=== PATIENT | female | born 2000 | race Two or more races ===

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

== ENCOUNTER 2019-08-17 15:54 | Emergency (ER) | payer OTHER ==
[~2019-08-17] VITALS: Ht 160 cm; Wt 56.7 kg
[~2019-08-17 15:54] MED LIST changes: -ALBU8.5H2 IH; +ALBU8.5H8 IH
--- NOTE | 2019-08-17 16:37 | NUR ---
PT BIB MOTHER C/O CONGESTION AND THROAT PAIN X 4 DAYS. AFEBRILE. PT AAOX4, VSS, BREATHING EVEN AND UNLABORED ON ROOM AIR W/ AND NOTED. PT CONNECTED TO THE MONITOR AND POX
[2019-08-17 16:54] VITALS: BP 121/73
--- NOTE | 2019-08-17 16:55 | NUR ---
Patient discharged to home in stable condition. Written and verbal after care instructions given. Patient verbalizes understanding of instruction.
== END 2019-08-17 16:55 | disposition home or self-care (01) ==
LOC: ER 15:59
DX: J20.9 Acute bronchitis, unspecified (principal); J45.909 Unspecified asthma, uncomplicated; Z90.89 Acquired absence of other organs; Z79.899 Other long term (current) drug therapy

== ENCOUNTER 2022-04-27 08:59 | Emergency (ER) | payer OTHER ==
[~2022-04-27] VITALS: Ht 160 cm; Wt 56.2 kg
[2022-04-27 09:12] VITALS: BP 132/83
--- NOTE | 2022-04-27 09:15 | NUR ---
To ER bed 7, "Feel like I have burning in my chest started yesterday +cough/phlegm", aaox3, breathing even and non labored, awaiting md orders
--- NOTE | 2022-04-27 09:38 | NUR ---
URINE COLLECTED AND SENT TO LAB
[2022-04-27] MEDS ORDERED: IBUP-1957 PO ×3 (11:32→11:55)
[2022-04-27] MEDS ORDERED: ALBU8.5H8 INH (11:55)
--- NOTE | 2022-04-27 12:17 | NUR ---
Patient discharged to home in stable condition. Written and verbal after care instructions given. Patient verbalizes understanding of instruction.
== END 2022-04-27 12:17 | disposition home or self-care (01) ==
LOC: ER 09:04
DX: B34.9 Viral infection, unspecified (principal); J45.909 Unspecified asthma, uncomplicated; Z91.011 Allergy to milk products; Z91.013 Allergy to seafood; Z91.012 Allergy to eggs; Z88.8 Allergy status to other drugs, medicaments and biological substances; Z79.899 Other long term (current) drug therapy
CPT/HCPCS: 71045-TC; 84703-TC

== ENCOUNTER 2022-11-18 09:45 | Emergency (ER) | payer OTHER ==
[~2022-11-18] VITALS: Ht 160 cm; Wt 54.4 kg
[~2022-11-18 09:45] MED LIST changes: +ALBU8.5H8 INH; +IBUP-1957 PO
[2022-11-18 12:13] VITALS: BP 123/73
== END 2022-11-18 12:13 | disposition home or self-care (01) ==
LOC: ER 09:52
DX: S93.602A Unspecified sprain of left foot, initial encounter (principal); J45.909 Unspecified asthma, uncomplicated; Z90.89 Acquired absence of other organs; Z91.011 Allergy to milk products; Z91.013 Allergy to seafood; Z91.018 Allergy to other foods; Z79.899 Other long term (current) drug therapy; X50.1XXA Overexertion from prolonged static or awkward postures, initial encounter; Y93.89 Activity, other specified; Y92.89 Other specified places as the place of occurrence of the external cause; Y99.8 Other external cause status
CPT/HCPCS: 73630-TC

== ENCOUNTER 2023-01-13 12:26 | Emergency (ER) | payer OTHER ==
[~2023-01-13] VITALS: Ht 160 cm; Wt 52.2 kg
--- NOTE | 2023-01-13 12:40 | NUR ---
c/o pelvic and bilateral flank pain x 4 days. denies dysuria and hematuria.
--- NOTE | 2023-01-13 13:19 | NUR ---
URINE COLLECTED AND SENT TO LAB
[2023-01-13 13:28] LABS: BASOPHILS % (AUTO) 0.4 % (0.0-2.0); EOSINOPHILS % (AUTO) 1.7 % (0.0-6.0); HEMATOCRIT 39 % (33-45); HEMOGLOBIN 12.7 g/dL (11.5-14.8); LYMPHOCYTES # (AUTO) 2.4 K/uL (0.8-4.8); LYMPHOCYTES % (AUTO) 29.3 % (20.0-44.0); MEAN CORPUSCULAR HGB CONC 33 g/dl (31.0-36.0); MEAN CORPUSCULAR VOLUME 90 fL (82-100); MONOCYTES # (AUTO) 0.5 K/uL (0.1-1.30); MONOCYTES % (AUTO) 6.4 % (2.0-12.0); NEUTROPHILS # (AUTO) 5.1 K/uL (1.8-8.9); NEUTROPHILS % (AUTO) 62.2 % (43.0-81.0); PLATELET COUNT (AUTO) 300 K/uL (150-450); RED BLOOD CELL COUNT(AUTO) 4.32 MIL/uL (4.0-5.2); WHITE BLOOD COUNT (AUTO) 8.1 K/uL (4.3-11.0)
[2023-01-13 13:53] LABS: CREATININE 0.5 mg/dL (0.6-1.3); POTASSIUM 4.1 mmol/L (3.5-5.1)
[2023-01-13 13:57] LABS: BILIRUBIN,URINE NEGATIVE (NEGATIVE); COLOR,URINE YELLOW (YELLOW); LEUKOCYTE ESTERASE ,URINE NEGATIVE (NEGATIVE); NITRITE, URINE NEGATIVE (NEGATIVE); PROTEIN,URINE NEGATIVE (NEGATIVE); UGLUCOSE NEGATIVE (NEGATIVE); UROBILINOGEN,URINE 0.2 EU/dL (0.2)
[2023-01-13 13:59] LABS: BILIRUBIN,DIRECT 0.1 mg/dL (0.0-0.2); BILIRUBIN,TOTAL 0.5 mg/dL (0.2-1.0); TOTAL PROTEIN, SERUM 7.2 g/dL (6.4-8.2)
--- NOTE | 2023-01-13 14:15 | NUR ---
US TECH AT BED SIDE
[2023-01-13] MEDS ORDERED: NAPR-1009 PO (15:18)
[2023-01-13] MEDS ORDERED: KETOROLAC TROMETHAMINE INJ 30 MG/ML VIAL ONE (16:28)
[2023-01-13] MEDS ORDERED: KETOROLAC TROMETHAMINE INJ 30 MG/ML VIAL IM ONE (16:30)
--- NOTE | 2023-01-13 17:09 | NUR ---
Patient discharged to home in stable condition. Written and verbal after care instructions given. Patient verbalizes understanding of instruction.
[2023-01-13 17:11] VITALS: BP 112/61
== END 2023-01-13 17:12 | disposition home or self-care (01) ==
LOC: ER 12:30
DX: M54.50 Low back pain, unspecified (principal); R10.30 Lower abdominal pain, unspecified; J45.909 Unspecified asthma, uncomplicated; Z98.890 Other specified postprocedural states; Z79.899 Other long term (current) drug therapy
CPT/HCPCS: 99285; 74176; 76856; 96372; 85025; 80048; 87086; 83690; 80076; 84703; 81003; 36415; 85730; J1885

== ENCOUNTER 2024-02-05 09:20 | Emergency (ER) | payer OTHER ==
[~2024-02-05] VITALS: Ht 160 cm; Wt 54.4 kg
[~2024-02-05 09:20] MED LIST changes: +NAPR-1009 PO
[2024-02-05 09:37] VITALS: BP 131/69; TEMP 98.6; O2SAT 100
[2024-02-05] MEDS ORDERED: TETRAcaine 5 ML BOTTLE ONE (09:54)
[2024-02-05] MEDS ORDERED: CIPR5DRO LEFTEYE (10:08)
[2024-02-05] MEDS ORDERED: FLUORESCEIN SODIUM OPHTH 1 EA STRIP ONE (10:17)
== END 2024-02-05 10:30 | disposition home or self-care (01) ==
LOC: ER 09:20
DX: H10.9 Unspecified conjunctivitis (principal); J45.909 Unspecified asthma, uncomplicated; Z90.89 Acquired absence of other organs; Z91.011 Allergy to milk products; Z91.018 Allergy to other foods; Z91.013 Allergy to seafood; Z91.040 Latex allergy status; Z91.012 Allergy to eggs

== ENCOUNTER 2024-02-06 14:03 | Emergency (ER) | payer OTHER ==
[~2024-02-06] VITALS: Ht 160 cm; Wt 54.4 kg
[~2024-02-06 14:03] MED LIST changes: +CIPR5DRO LEFTEYE
[2024-02-06 14:12] VITALS: BP 127/71; TEMP 98.3; O2SAT 99
== END 2024-02-06 15:47 | disposition left against medical advice (07) ==
LOC: ER 14:06
DX: H57.10 Ocular pain, unspecified eye (principal); Z53.21 Procedure and treatment not carried out due to patient leaving prior to being seen by health care provider

== ENCOUNTER 2025-03-08 14:48 | Emergency (ER) | payer OTHER ==
[~2025-03-08] VITALS: Ht 160 cm; Wt 52.6 kg
[~2025-03-08 14:48] MED LIST changes: +HYDR28.318 TP; +LORA10TA7 PO
[2025-03-08 15:01] VITALS: BP 116/82; TEMP 98.9
[2025-03-08] MEDS ORDERED: LIDOCAINE 1% INJ 50 ML MDV IJ ONE (15:39)
[2025-03-08] MEDS ORDERED: CEFTRIAXONE 500 MG VIAL ONE (15:39)
[2025-03-08] MEDS: CEFTRIAXONE 1 G VIAL IM ONE (15:45)
[2025-03-08 16:02] LABS: APPEARANCE,URINE CLEAR (CLEAR); BLOOD, URINE NEGATIVE Ery/uL (NEGATIVE); LEUKOCYTE ESTERASE ,URINE NEGATIVE (NEGATIVE); NITRITE, URINE NEGATIVE (NEGATIVE); UGLUCOSE NEGATIVE (NEGATIVE)
[2025-03-08] MEDS ORDERED: METR-147 PO (16:16)
[2025-03-08] MEDS ORDERED: DOXY100C2 PO (16:16)
[2025-03-08] MEDS ORDERED: FLUC150T PO (16:16)
[2025-03-08 16:19] VITALS: O2SAT 100
[2025-03-11 03:07] LABS: CHLAMYDIA TRACHOMATIS NAA Negative (Negative); NEISSERIA GONORRHOEAE NAA Negative (Negative)
== END 2025-03-08 16:20 | disposition home or self-care (01) ==
LOC: ER 15:00
DX: N76.0 Acute vaginitis (principal); R30.0 Dysuria; J45.909 Unspecified asthma, uncomplicated; Z79.1 Long term (current) use of non-steroidal anti-inflammatories (NSAID); Z79.51 Long term (current) use of inhaled steroids; Z79.899 Other long term (current) drug therapy; Z91.030 Bee allergy status; Z90.89 Acquired absence of other organs; Z91.012 Allergy to eggs; Z91.011 Allergy to milk products; Z91.018 Allergy to other foods; Z91.013 Allergy to seafood
CPT/HCPCS: 99283; 96372; 81003; 87491; 87591; J3490; J0696